=== PATIENT | female | born 1940 | race Caucasian/White ===

== ENCOUNTER → 2016-08-14 | Outpatient (CLI) | payer MEDICARE ==
[~2016-08-14] MED LIST: ATOR20TA15 PO; BENA20TA PO; ESTR42.5V VAGINAL; TOPR25TA PO
[2016-08-14 12:58] LABS: AUTOMATED NEUTROPHIL # 4.2 TH/MM3 (1.8-7.7); BASOPHIL # 0.1 TH/MM3 (0-0.2); BASOPHIL % 1.2 % (0.0-2.0); EOSINOPHIL % 0.6 % (0.0-4.0); HEMATOCRIT 42.7 % (35.0-46.0); HEMO FLAGS DIFF FINAL; MEAN CELL VOLUME 91.9 FL (80.0-100.0); MEAN CORPUSCULAR HGB CONC 32.7 % (32.0-36.0); MONO % 8.7 % (0.0-8.0); NEUT % 60.5 % (16.0-70.0); PLATELET COUNT 186 TH/MM3 (150-450); RED BLOOD COUNT 4.65 MIL/MM3 (4.00-5.30); RED CELL DISTRIBUTION WIDTH 13.5 % (11.6-17.2); WHITE BLOOD COUNT 6.9 TH/MM3 (4.0-11.0)
[2016-08-14 13:07] LABS: BLOOD, URINE NEG (NEG); COMMENT (UR) CULT NOT INDICATED; CULTURE IF INDICATED CULT NOT INDICATED; GLUCOSE,URINE NEG (NEG); KETONE, URINE NEG (NEG); NITRITE,URINE NEG (NEG); SQUAMOUS EPITHELIAL CELL URINE 1 /hpf (0-5); TRANSITIONAL EPI CELLS, URINE <1 /hpf; URINE COLOR YELLOW (YELLW/STRAW)
[2016-08-14 13:26] LABS: ALKALINE PHOSPHATASE 89 U/L (45-117); ALT (GPT) 27 U/L (10-53); ANION GAP 7 MEQ/L (5-15); AST (GOT) 27 U/L (15-37); BLOOD UREA NITROGEN 14 MG/DL (7-18); CHLORIDE 106 MEQ/L (98-107); GLOMERULAR FILTRATION RATE 59 ML/MIN (>89); GLUCOSE,FASTING 96 MG/DL (74-99); POTASSIUM 4.3 MEQ/L (3.5-5.1); SODIUM (NA) 144 MEQ/L (136-145); TOTAL BILIRUBIN ADULT 0.8 MG/DL (0.2-1.0)
--- NOTE | 2016-08-15 18:42 | EKG ---
Date Performed: 08/14/2016 Time Performed: 12:23:08 PTAGE: 75 years EKG: SINUS BRADYCARDIA LEFT BUNDLE BRANCH BLOCK ABNORMAL ECG NO PREVIOUS TRACING DOCTOR: Luis Daniel Juan Interpretating Date/Time 08/15/2016 18:40:00
== END ==
LOC: CPRE 11:48
PROVIDERS: ATTEND Obstetrics & Gynecology Gynecology
DX: Z01.812 Encounter for preprocedural laboratory examination (principal); Z01.810 Encounter for preprocedural cardiovascular examination; R93.5 Abnormal findings on diagnostic imaging of other abdominal regions, including retroperitoneum; I44.7 Left bundle-branch block, unspecified
CPT/HCPCS: 36415; 80053; 81001; 85025; 93005

== ENCOUNTER → 2016-08-22 | Day surgery (SDC) | payer MEDICARE ==
--- NOTE | 2016-08-14 15:09 | MH ---
cc: TEO MARTINEZ MD DATE OF ADMISSION: 08/22/2016 DATE OF : 1940. REASON FOR ADMISSION Scheduled for admission on 08/22 for hysteroscopy, D&C and diagnostic cystoscopy. HISTORY OF PRESENT ILLNESS The patient is a 75-year-old white female, 2, para 2, who has issues with vaginal atrophy and bladder dysfunction with urgency. Part of her workup included ultrasound which showed a thickened endometrial stripe of 11 mm. Patient was given option for treatment or observation and she opts for a hysteroscopy. Also in light of her bladder symptomatology she is going to have a cystoscopy as well. PAST MEDICAL HISTORY The patient's medical history notable for: 1. Barbara's disease. 2. Atrial fibrillation. 3. Hyperlipidemia. 4. Hypertension. 5. History of ulcerative colitis. PAST SURGICAL HISTORY 1. Tonsillectomy. 2. D&C x3. 3. She also reports she had "excessive bleeding after her D&C 30 years ago and had to be kept overnight in the hospital". 4. She has had a workup at [facility] for hematologic issues which was negative. MEDICATIONS 1. Atorvastatin 20 mg daily. 2. Benazepril 20 mg daily. 3. Metoprolol 25 mg daily. ALLERGIES NIACIN, CIPRO, NITROFURANTOIN, CONTRAST MEDIA, CORTISONE, LATEX. GYNECOLOGIC HISTORY No STDs or abnormal Pap smears. Natural menopause several decades ago. She has had several D&C with what she considers to be excessive bleeding after the procedures. OBSTETRICAL HISTORY Two vaginal deliveries, uncomplicated. FAMILY HISTORY Noncontributory. SOCIAL HISTORY , has good social support. No alcohol or drugs. REVIEW OF SYSTEMS Review of systems as above. No chest pain, orthopnea, PND. No nausea, vomiting, fever, chills. No vaginal bleeding or discharge. Remainder of 14-point review negative. PHYSICAL EXAMINATION VITAL SIGNS: She is afebrile, vital signs are stable. Blood pressure is 120/70, height is 5 feet 1 inch. Weight is 131, BMI is 25. GENERAL: Patient is alert and oriented, in no acute distress. No sign of cognitive dysfunction or depression. HEENT: Within normal limits. NECK: Supple. No JVD. CHEST: Clear. HEART: Regular rate and rhythm. ABDOMEN: Soft, nontender. No hepatosplenomegaly. No CVA tenderness. PELVIC: Exam will be detailed under anesthesia. EXTREMITIES: Normal skin without rashes. NEURO: Nonfocal. No DVT signs. IMAGING STUDIES June of 2016 shows uterus 6 x 5 x 3 cm, endometrial stripe 11 mm. No other significant abnormalities. ASSESSMENT Patient with bladder dysfunction most likely related to atrophy issue but with her symptomatology, will perform cystoscopy. The patient with abnormal ultrasound of the endometrial stripe. We discussed management and treatment options and she opts for hysteroscopy, D&C. At this point she is aware of the risks, benefits, alternatives to the planned procedure including damage to surrounding organs, bleeding, infection and the need for further definitive surgery later depending on pathologic findings. The patient notes that she has had issues with bleeding in the past, although she has had dental work and other major procedures without significant bleeding. She has had a negative workup at [facility]. At this point I do not believe her history precludes a surgical biopsy of the endometrium. At this point we will use DVT prophylaxis with sequential compression device, Ancef 2 grams IV for antibiotic prophylaxis and no latex allergy precautions. Anticipate outpatient procedure. Teo Martinez MD CS/KATHLEEN /2:32 PM /2:44 PM
[~2016-08-22] VITALS: Ht 154.9 cm; Wt 59.6 kg
[~2016-08-22] MED LIST changes: +ACETAMINOPHEN 1000 MG/100 ML VIAL IV ONE; +CHLORHEXIDINE GLUCONATE 2 % 1 PACK (2 CLOTHS) TOPICAL PRN; +DEXAMETHASONE SOD PHOS 4 MG/ML VIAL ONE; +DO NOT ADM ANY ANTICOAGULANT DRUGS PRN; +FAMOTIDINE 20 MG/2 ML VIAL ONE; +INSULIN HUMAN REGULAR 1,000 UNITS/10 ML VIAL SQ PRN; +KETOROLAC TROMETHAMINE 10 MG TAB PO PRN; +KETOROLAC TROMETHAMINE 30 MG/ML (IVP) VIAL IV PUSH PRN; +LACTATED RINGER'S 1000 ML IV PRN; +METOPROLOL TARTRATE 25 MG TAB PO PRN; +ONDANSETRON HCL 4 MG/2 ML VIAL IV PUSH ONE; +ONDANSETRON HCL 4 MG/2 ML VIAL IV PUSH PRN; +POVIDONE IODINE 5% (ANTISEPSIS KIT) 4 APPLICATIONS EACH NARE PRN; +PROPOFOL 200 MG/20 ML AMP IV ONE; +SODIUM CHLORID 0.9% 500 ML IV PRN; +ceFAZolin 2 GM PREMIX 50 ML IV SCH; +ceFAZolin 2 GM PREMIX 50 ML ONE
[2016-08-22 06:55] VITALS: BP 184/82; PULSE 68; RESP 16; TEMP 99.2; O2SAT 98
--- NOTE | 2016-08-22 08:56 | PD.OP ---
Operative Report Date of Surgery: Aug 22, 2016 Preoperative Diagnosis: (1) Lower urinary tract symptoms (LUTS) (2) Abnormal ultrasound of uterus Postoperative Diagnosis: (1) Lower urinary tract symptoms (LUTS) (2) Abnormal ultrasound of uterus (3) Trigonitis (4) Uterine adhesions Procedure: OPERATIVE HYSTEROSCOPY CYSTOSCOPY WITH HYDRODISTENTION Anesthesia: LMA Surgeon: Samir Cheung Machinist Brake(s): [facility] X 1 Resident Surgeon: NONE Operation and Findings: STENOTIC CERVICAL OS WITH LOWER SEGMENT ADHESIONS 50 CC OF MUCINOUS FLUID NOTED SMALL POSTERIOR WALL POLYP SOUNDS TO 9 CM BLADDER WITH TRIGONITIS CAPACITY 450 CC Samir Cheung MD Aug 22, 2016 08:56
[2016-08-22 10:23] VITALS: BP 150/61; PULSE 51; RESP 16; TEMP 97.4; O2SAT 98
--- NOTE | 2016-08-24 16:09 | MP ---
cc: TEO MARTINEZ MD DATE OF SURGERY 08/22/2016 PREOPERATIVE DIAGNOSES 1. Abnormal uterine ultrasound. 2. Bladder pain and urgency. POSTOPERATIVE DIAGNOSES 1. 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 PROCEDURE 1. Operative hysteroscopy with lysis of intrauterine adhesions. 2. Cystoscopy with hydrodistention. SURGEON Jonatan ANESTHESIA Laryngeal mask. [employer] staff x1 FLUID 1000 cc crystalloid. BLOOD LOSS None. FINDINGS Externa genitalia poorly estrogenized. POP-Q score: Aa is -1, Ap is -2. Point C is -6. Total vaginal length is 10. Genital hiatus is 6 Perineal body is 4. Rectal exam was normal. Hysteroscopy shows stenotic cervical os and scarring at the lower uterine segment consistent with partial Asherman's cavity, sounds to 9 cm once the adhesions were lysed. Small polyp noted posterior uterine wall. The cystoscopy showed evidence of chronic trigonitis but no trabeculations ulcerations, polyps or ulcers. The anesthetic bladder capacity is 450 cc. SPECIMENS Endometrial curettage. COMPLICATIONS None. DISPOSITION Recover stable. Needle, sponge count correct. DRAINS None. ANTIBIOTIC Prophylaxis Ancef 2 grams. DVT PROPHYLAXIS Sequential pressure device. Time-out procedure per protocol. INDICATIONS FOR PROCEDURE The patient with two separate issues, one is abnormal ultrasound with thickened endometrial stripe. The other issue is bladder pain and urgency. PROCEDURE IN DETAIL The patient taken to the operating theater, prepped and draped in fashion appropriate for planned procedures. She was placed in dorsal spine position with careful attention paid to placement of legs in stirrups to avoid undue stress to sensitive neurovascular structures. Above findings noted. Neurovascular integrity documented. Bladder was drained. Cervix was identified, grasped with a single tooth tenaculum. The initial dilation only allowed us to go approximately 2 cm with hysteroscope. We were able to see a small area that lead to the cavity. Adhesions here were lysed with mechanical technique. No energy source was used. Once the cervix was opened clear fluid was spontaneously expressed. We then placed hysteroscope into the cavity, saw a small polyp on the posterior wall, otherwise no significant findings. Curettage obtained. The hysteroscopic procedure concluded. Cystoscopy was performed using a 17-Swazi bev, using a 70 degrees scope. Bladder trigone was identified. Total bladder capacity 450 cc at 50 cm water pressure. Repeat cystoscopy showed no significant findings except a chronic trigonitis. Procedure was concluded. The patient reversed from anesthesia, taken to recovery room in stable condition. Regarding the trigonitis issue will continue estrogen therapy, consider antihistamines. Regarding the abnormal ultrasound issues appear to be more related to fluid retained behind the stenotic os although there was a small polyp. I do not think there is anything ominous there but will await further pathologic confirmation and follow this up postoperatively. Teo Martinez MD CS/EO /8:46 AM /3:48 PM
== END | disposition home or self-care (01) ==
LOC: HSDC 05:30
PROVIDERS: ATTEND Obstetrics & Gynecology Gynecology
DX: N85.6 Intrauterine synechiae (principal); N30.30 Trigonitis without hematuria; N84.0 Polyp of corpus uteri; E06.3 Autoimmune thyroiditis; I48.91 Unspecified atrial fibrillation; I10 Essential (primary) hypertension
CPT/HCPCS: 00952; 52000; 58559; 88305; J0131; J1100; J1885; J2405; J3010; J7120; J0690